=== PATIENT | female | born 1990 | race Caucasian/White ===

== ENCOUNTER → 2017-12-01 | Outpatient (CLI) | payer OTHER ==
[~2017-12-01] MED LIST: ADDERALL10 MG PO; AMOXICILLIN 8751 TAB PO; FLONASE NASAL S16 GM NS; NORCO 325 MG-51 TAB PO; NUVARING1 ICR VG; SINGULAIR 110 MG/TAB PO
== END ==
LOC: COL.RAD 13:06
DX: R13.10 Dysphagia, unspecified (principal); R51 Headache; R20.2 Paresthesia of skin
CPT/HCPCS: A9585